=== PATIENT | male | born 1970 | race Caucasian/White ===

== ENCOUNTER → 2017-08-26 | Outpatient (CLI) | payer BC, OTHER | END | disposition home or self-care (01) | LOC: CFH 13:00 | PROVIDERS: ATTEND Physician Assistant | DX: M51.26 Other intervertebral disc displacement, lumbar region (principal); M51.36 Other intervertebral disc degeneration, lumbar region; M50.223 Other cervical disc displacement at C6-C7 level; M50.323 Other cervical disc degeneration at C6-C7 level | CPT/HCPCS: 72141; 72148 ==

== ENCOUNTER → 2017-09-30 | Outpatient (CLI) | payer BC, OTHER | LOC: CFH 07:31 | PROVIDERS: ATTEND Physician Assistant | DX: M51.25 Other intervertebral disc displacement, thoracolumbar region (principal); S22.000K Wedge compression fracture of unspecified thoracic vertebra, subsequent encounter for fracture with nonunion; X58.XXXS Exposure to other specified factors, sequela | CPT/HCPCS: 72146 ==